=== PATIENT | female | born 1960 | race Caucasian/White ===

== ENCOUNTER 2017-11-24 17:49 | Emergency (ER) | payer MEDICARE, MEDICAID ==
[~2017-11-24] VITALS: Ht 170.2 cm; Wt 102.0 kg
[~2017-11-24 17:49] MED LIST: ADLT ASA LOW81 MG OR; ADVAIR DISK1 IN; ADVAIR DISKUS IN; ALBUTEROL0.5 % IN; ALBUTEROL90 MCG IN; ATIVAN1 MG PO; AZITHROMYCIN500 MG OR; BENTYL20 MG OR; BUSPAR10 M1 OR; BUSPAR5 MG PO; BUSPIRONE15 MG PO; CARAFATE1 GM PO; CARDIZEM CD240 MG OR; CARISOPRODOL350 MG PO; CELEBREX200 MG PO; CIPRO500 MG PO; COMBIVENT RESPIMAT IN; DOXYCYCL HYC100 MG PO; DUONEB IN; ECOTRIN LOW STR81 MG PO; EFFEXOR XR150 MG PO; EFFEXOR25 MG OR; EPIPEN0.3 MG IM; FIORICET PO; FLAGYL500 MG OR; FLONASE SPRAY50 MC1; GABAPENTIN300 MG PO; INDOCIN25 MG PO; INDOCIN50 MG/CAP PO; KEFLEX500 MG PO; KEPPRA750 M2 PO; KLOR-CON 1010 ME1 PO; LASIX 20 MG TAB20 MG PO; LEVOTHYROXIN125 MCG PO; LEVOTHYROXIN150 MCG PO; LEVOTHYROXIN75 MCG PO; LEXAPRO20 MG OR; LORTAB 10 PO; LOSARTAN POTASS50 MG PO; MEDDOSEPAK PO; METFORMIN500 M1 PO; METRONIDAZOL500 MG PO; MIRAPEX0.5 MG OR; MIRAPEX1.5 MG OR; NAPROSYN500 MG OR; NEURONTIN600 MG OR; OXYCODONE HCL15 MG PO; PERCOCET1 TA1 OR; PEXEVA30 MG OR; POT CHLORIDE20 ME3 PO; PRILOSEC20 MG/CAP PO; PRILOSEC40 MG; PROAIR HFA IN; ROXICODONE15 MG OR; SIMVASTATIN10 MG PO; SINGULAIR10 MG OR; SPIRIVA HANDIHALER IN; SPIRIVA IN; SYMBICORT1 AE1 IN; SYNTHROID175 MCG OR; TIZANIDINE2 MG PO; TOPAMAX100 MG OR; TOPAMAX25 MG PO; TRAZODONE50 MG PO; TYLENOL 500MG TAB PO; VENLAFAXINE H37.5 MG PO; VENLAFAXINE HCL75 M1 PO; ZANTAC150 MG OR; ZERTEC; ZOCOR10 MG OR; ZOCOR20 MG OR; ZOFRAN ODT4 MG PO
[2017-11-24 18:39] LABS: HEMATOCRIT 39.1 % (37.0-47.0); HEMOGLOBIN 12.7 g/dl (12.0-16.0); IMMATURE GRANULOCYTES 0.4 % (0.0-1.0); MEAN CELL VOLUME 86.1 fL CALC (80.0-100.0); MEAN CORPUSCULAR HGB CONC 32.5 g/L CALC (32.0-36.0); NEUT# 4.26 thou/uL (2.00-7.15); RED BLOOD COUNT 4.54 mill/uL (4.20-5.60); RED CELL DISTRI WIDTH 16.8 % (11.5-15.5)
[2017-11-24 18:52] LABS: ALBUMIN 3.9 g/dL (3.2-5.0); ALKALINE PHOSPHATASE 123 u/l (38-126); ANION GAP 18 (6-22 (CALC)); BILIRUBIN, TOTAL 0.2 mg/dL (0.0-1.4); BUN 9 mg/dL (7-17); BUN/CREATININE RATIO 11 (12-20 (CALC)); CALCIUM 9.8 mg/dL (8.4-10.2); CARBON DIOXIDE 20 mmol/l (22-30); CHLORIDE 104 mmol/l (95-108); CREATININE 0.8 mg/dL (0.5-1.0); GFR > 60 ML/MIN (>=60 (CALC)); GFR FOR AFR.AMER. > 60 ML/MIN (>=60 (CALC)); GLUCOSE 89 mg/dL (65-105); POTASSIUM 3.9 mmol/l (3.5-5.1); SGOT/AST 20 u/l (14-36); SGPT/ALT 28 u/l (9-52); SODIUM 138 mmol/l (137-146); TOTAL PROTEIN 6.8 g/dL (6.3-8.2)
[2017-11-24 18:54] LABS: INFLUENZA A NONE DETECTED (NONE DETECT); INFLUENZA B NONE DETECTED (NONE DETECT)
[2017-11-24] MEDS ORDERED: AUGMENTIN875TAB PO (19:04)
[2017-11-24 19:10] VITALS: BP 167/88
== END 2017-11-24 19:17 | disposition home or self-care (01) ==
LOC: ED 17:49
PROVIDERS: Emergency Medicine
DX: J06.9 Acute upper respiratory infection, unspecified (principal); J32.0 Chronic maxillary sinusitis; R50.9 Fever, unspecified; R51 Headache; R09.81 Nasal congestion; H92.09 Otalgia, unspecified ear; F17.210 Nicotine dependence, cigarettes, uncomplicated; R09.89 Other specified symptoms and signs involving the circulatory and respiratory systems

== ENCOUNTER 2018-06-25 07:30 | Day surgery (SDC) | payer MEDICARE, MEDICAID ==
[~2018-06-25] VITALS: Ht 170.2 cm; Wt 90.7 kg
[~2018-06-25 07:30] MED LIST changes: +ALBUTEROL SUL0.083 % IN; +AMLODIPINE5 MG PO; +AUGMENTIN875TAB PO; +FLONASE AL50 MCG/ACT; +FLUOXETINE40 MG PO; +MONTELUKAST SOD10 MG PO; +TYLENOL325 M2 PO
[2018-06-25 09:59] VITALS: BP 117/75
== END 2018-06-25 10:15 | disposition home or self-care (01) ==
LOC: ENDO 07:30 → ORM 07-02 08:30
PROVIDERS: ATTEND Surgery
PROC: 0DBF8ZX Excision of Right Large Intestine, Via Natural or Artificial Opening Endoscopic, Diagnostic (ICD-10-PCS; principal; 2018-06-25)
PROC: 0DJ08ZZ Inspection of Upper Intestinal Tract, Via Natural or Artificial Opening Endoscopic (ICD-10-PCS; 2018-06-25)
DX: K64.8 Other hemorrhoids (principal); K64.4 Residual hemorrhoidal skin tags; D12.2 Benign neoplasm of ascending colon; R10.11 Right upper quadrant pain; K21.9 Gastro-esophageal reflux disease without esophagitis; J44.9 Chronic obstructive pulmonary disease, unspecified; E78.5 Hyperlipidemia, unspecified; E07.9 Disorder of thyroid, unspecified; G40.909 Epilepsy, unspecified, not intractable, without status epilepticus; F32.9 Major depressive disorder, single episode, unspecified; F41.9 Anxiety disorder, unspecified; F17.210 Nicotine dependence, cigarettes, uncomplicated

== ENCOUNTER → 2018-12-30 | Outpatient (REF) | payer MEDICARE, MEDICAID ==
[2018-12-30 07:41] LABS: HEMATOCRIT 37.2 % (37.0-47.0); HEMOGLOBIN 11.4 g/dl (12.0-16.0); IMMATURE GRANULOCYTES 0.3 % (0.0-5.0); MEAN CELL VOLUME 82.1 fL CALC (80.0-100.0); MEAN CORPUSCULAR HGB 25.2 pG CALC (26.0-32.0); MEAN CORPUSCULAR HGB CONC 30.6 g/L CALC (32.0-36.0); NEUT# 2.98 thou/uL (2.00-7.15); RED BLOOD COUNT 4.53 mill/uL (4.20-5.60); RED CELL DISTRI WIDTH 17.8 % (11.5-15.5)
[2018-12-30 08:01] LABS: ALBUMIN 3.8 g/dL (3.2-5.0); ALKALINE PHOSPHATASE 113 u/l (38-126); ANION GAP 14 (6-22 (CALC)); BILIRUBIN, TOTAL 0.3 mg/dL (0.0-1.4); BUN 12 mg/dL (7-17); BUN/CREATININE RATIO 13 (12-20 (CALC)); CARBON DIOXIDE 27 mmol/l (22-30); CHLORIDE 105 mmol/l (95-108); CREATININE 0.9 mg/dL (0.5-1.0); GFR > 60 ML/MIN (>=60 (CALC)); GFR FOR AFR.AMER. > 60 ML/MIN (>=60 (CALC)); POTASSIUM 4.9 mmol/l (3.5-5.1); SGOT/AST 18 u/l (14-36); SODIUM 141 mmol/l (137-146); TOTAL PROTEIN 6.8 g/dL (6.3-8.2)
[2018-12-30 08:30] LABS: TSH, 3RD GENERATION 1.43 uIU/mL (0.47 - 4.68)
== END | disposition home or self-care (01) ==
LOC: LAB 06:50
PROVIDERS: ATTEND Internal Medicine
DX: E11.69 Type 2 diabetes mellitus with other specified complication (principal)

== ENCOUNTER → 2019-01-05 | Outpatient (REF) | payer MEDICARE, MEDICAID ==
[2019-01-05 12:09] LABS: URINE BILIRUBIN - DIPSTICK NEGATIVE (NEGATIVE); URINE BLOOD DIPSTICK NEGATIVE (NEGATIVE); URINE COLOR YELLOW; URINE GLUCOSE - DIPSTICK NEGATIVE (NEGATIVE); URINE KETONE NEGATIVE (NEGATIVE); URINE LEUK ESTERASE NEGATIVE (Negative); URINE NITRITE - DIPSTICK NEGATIVE (Negative); URINE PROTEIN - DIPSTICK NEGATIVE (NEG-TRACE); URINE SPECIFIC GRAVITY 1.025; URINE UROBILINOGEN - DIPSTICK 0.2 E.U./dL (0.2)
[2019-01-05 12:18] LABS: URINE CLARITY CLEAR
== END | disposition home or self-care (01) ==
LOC: LABSPEC 11:29
PROVIDERS: ATTEND Internal Medicine
DX: R31.9 Hematuria, unspecified (principal)

== ENCOUNTER 2019-06-25 08:29 | Day surgery (SDC) | payer MEDICARE, MEDICAID ==
[~2019-06-25 08:29] MED LIST changes: +ABILIFY5 MG PO; +CALCIUM PO; +LEVOTHYROXINE150 MCG PO; +MECLIZINE25 MG PO; +MULT VITAMIN PO; +TYLENOL500 MG PO; +VITAMIN C250 MG PO; +WELLBUTRIN SR150 MG PO; +[UNRECOGNIZED DRUG - OTHER] PO
[2019-06-25 09:20] LABS: IMMATURE GRANULOCYTES 0.3 % (0.0-5.0); MEAN CORPUSCULAR HGB 26.5 pG CALC (26.0-32.0); MEAN CORPUSCULAR HGB CONC 31.8 g/L CALC (32.0-36.0); NEUT# 3.08 thou/uL (2.00-7.15); RED BLOOD COUNT 5.13 mill/uL (4.20-5.60); RED CELL DISTRI WIDTH 27.1 % (11.5-15.5)
[2019-06-25 09:22] LABS: HEMATOCRIT 42.8 % (37.0-47.0); HEMOGLOBIN 13.6 g/dl (12.0-16.0); MEAN CELL VOLUME 83.4 fL CALC (80.0-100.0)
[2019-06-25 09:33] LABS: ALBUMIN 4.1 g/dL (3.2-5.0); ALKALINE PHOSPHATASE 133 u/l (38-126); ANION GAP 13 (6-22 (CALC)); BUN 11 mg/dL (7-17); BUN/CREATININE RATIO 14 (12-20 (CALC)); CARBON DIOXIDE 23 mmol/l (22-30); CHLORIDE 109 mmol/l (95-108); CREATININE 0.8 mg/dL (0.5-1.0); GFR > 60 ML/MIN (>=60 (CALC)); GFR FOR AFR.AMER. > 60 ML/MIN (>=60 (CALC)); SGOT/AST 20 u/l (14-36); SODIUM 141 mmol/l (137-146); TOTAL PROTEIN 7.1 g/dL (6.3-8.2)
[2019-06-25 09:40] LABS: BILIRUBIN, TOTAL 0.5 mg/dL (0.0-1.4)
[2019-06-25 12:06] VITALS: BP 116/76
== END 2019-06-25 12:45 | disposition home or self-care (01) ==
LOC: ENDO 08:29 → ORM 09:00 → ENDO 09:05
PROVIDERS: ATTEND Surgery
PROC: 06BY3ZC Excision of Hemorrhoidal Plexus, Percutaneous Approach (ICD-10-PCS; principal; 2019-06-25)
PROC: 0DB58ZX Excision of Esophagus, Via Natural or Artificial Opening Endoscopic, Diagnostic (ICD-10-PCS; 2019-06-25)
PROC: 0DB68ZX Excision of Stomach, Via Natural or Artificial Opening Endoscopic, Diagnostic (ICD-10-PCS; 2019-06-25)
PROC: 0DBL8ZX Excision of Transverse Colon, Via Natural or Artificial Opening Endoscopic, Diagnostic (ICD-10-PCS; 2019-06-25)
DX: D64.9 Anemia, unspecified (principal); D12.3 Benign neoplasm of transverse colon; K64.8 Other hemorrhoids; K29.70 Gastritis, unspecified, without bleeding; K21.0 Gastro-esophageal reflux disease with esophagitis; K31.7 Polyp of stomach and duodenum; I10 Essential (primary) hypertension; J44.9 Chronic obstructive pulmonary disease, unspecified; F17.210 Nicotine dependence, cigarettes, uncomplicated; Z86.010 Personal history of colon polyps
CPT/HCPCS: C9290

== ENCOUNTER 2022-06-03 20:04 | Emergency (ER) | payer MEDICARE, MEDICAID ==
[2022-06-03] VITALS (9 sets, daily range): BP systolic 127–147; BP diastolic 73–102
[~2022-06-03] VITALS: Ht 170.2 cm; Wt 129.5 kg
[2022-06-03 20:50] LABS: HEMATOCRIT 44.9 % (37.0-47.0); HEMOGLOBIN 14.1 g/dl (12.0-16.0); IMMATURE GRANULOCYTES 0.4 % (0.0-5.0); MEAN CELL VOLUME 91.3 fL CALC (80.0-100.0); MEAN CORPUSCULAR HGB 28.7 pG CALC (26.0-32.0); MEAN CORPUSCULAR HGB CONC 31.4 g/dL CAL (32.0-36.0); NEUT# 7.7 thou/uL (2.00-7.15); RED BLOOD COUNT 4.92 mill/uL (4.20-5.60); RED CELL DISTRI WIDTH 16.9 % (11.5-15.5)
[2022-06-03 20:58] LABS: ALBUMIN 3.7 g/dL (3.2-5.0); ALKALINE PHOSPHATASE 80 u/l (38-126); ANION GAP 9 (6-22 (CALC)); BILIRUBIN, TOTAL 0.2 mg/dL (0.0-1.4); BUN 17 mg/dL (7-17); BUN/CREATININE RATIO 20 (12-20 (CALC)); CARBON DIOXIDE 28 mmol/l (22-30); CHLORIDE 105 mmol/l (95-108); CREATININE 0.8 mg/dL (0.5-1.0); GFR FOR AFR.AMER. > 60 ML/MIN (>=60 (CALC)); GFR OTHER RACES > 60 ML/MIN (>=60 (CALC)); SGOT/AST 32 u/l (14-36); SODIUM 138 mmol/l (137-146); TOTAL PROTEIN 6.6 g/dL (6.3-8.2)
[2022-06-03 21:00] LABS: D-DIMER 0.42 mg/L (0.19-0.60)
[2022-06-03 21:10] LABS: MYOGLOBIN 37 ng/mL (0 - 62)
[2022-06-03 21:11] LABS: ACT PARTIAL THROMBO TIME 20.3 SECONDS (20.0-32.5); INTERNATIONAL NORMALIZED RATIO 0.8 RATIO (0.7-1.3); PROTHROMBIN TIME 8.9 SECONDS (9.0-12.5)
[2022-06-03] MEDS ORDERED: BUDESONID2 IN (21:15)
[2022-06-03] MEDS ORDERED: FORMOTEROL FUM NEB (21:16)
[2022-06-03 22:26] LABS: URINE BILIRUBIN - DIPSTICK NEGATIVE (NEGATIVE); URINE BLOOD DIPSTICK NEGATIVE (NEGATIVE); URINE COLOR YELLOW; URINE GLUCOSE - DIPSTICK NEGATIVE (NEGATIVE); URINE KETONE NEGATIVE (NEGATIVE); URINE LEUK ESTERASE NEGATIVE (NEGATIVE); URINE PH 5.5 (4.5-8.0); URINE PROTEIN - DIPSTICK NEGATIVE (NEG-TRACE); URINE SPECIFIC GRAVITY 1.025; URINE UROBILINOGEN - DIPSTICK 0.2 E.U./dL (0.2)
[2022-06-03 22:28] LABS: URINE NITRITE - DIPSTICK NEGATIVE (Negative)
[2022-06-04] MEDS ORDERED: EC-NAPROXEN500 MG PO (17:12)
[2022-06-04] MEDS ORDERED: CYCLOBENZAPRINE10 MG PO (17:12)
== END 2022-06-03 22:55 | disposition home or self-care (01) ==
LOC: ED 20:04
PROVIDERS: Family Medicine
DX: R07.9 Chest pain, unspecified (principal); M54.6 Pain in thoracic spine; G89.29 Other chronic pain; I10 Essential (primary) hypertension; J44.9 Chronic obstructive pulmonary disease, unspecified; F17.200 Nicotine dependence, unspecified, uncomplicated; Z20.822 Contact with and (suspected) exposure to COVID-19
CPT/HCPCS: Q9967

== ENCOUNTER 2022-06-04 15:31 | Emergency (ER) | payer MEDICARE, MEDICAID ==
[2022-06-04] VITALS (9 sets, daily range): BP systolic 117–151; BP diastolic 73–104
[~2022-06-04] VITALS: Ht 170.2 cm; Wt 129.0 kg
[~2022-06-04 15:31] MED LIST changes: +BUDESONID2 IN; +FORMOTEROL FUM NEB
[2022-06-04] MEDS ORDERED: CYCLOBENZAPRINE10 MG PO (17:12)
[2022-06-04] MEDS ORDERED: EC-NAPROXEN500 MG PO (17:12)
== END 2022-06-04 17:39 | disposition home or self-care (01) ==
LOC: ED 15:31
DX: R09.1 Pleurisy (principal); J44.9 Chronic obstructive pulmonary disease, unspecified; G89.4 Chronic pain syndrome; I10 Essential (primary) hypertension; F17.200 Nicotine dependence, unspecified, uncomplicated

== ENCOUNTER 2023-11-22 03:40 | Emergency (ER) | payer MEDICARE, MEDICAID ==
[~2023-11-22] VITALS: Ht 170.2 cm; Wt 125.0 kg
[~2023-11-22 03:40] MED LIST changes: +CYCLOBENZAPRINE10 MG PO; +EC-NAPROXEN500 MG PO
[2023-11-22 03:48] VITALS: BP 123/90
[2023-11-22 04:24] LABS: BASO% 0.3 % (0-3); EOS% 0.3 % (0-8); HEMATOCRIT 41.4 % (37.0-47.0); HEMOGLOBIN 12.3 g/dl (12.0-16.0); IMMATURE GRANULOCYTES 0.5 % (0.0-5.0); LYMPH% 8.3 % (15-41); MEAN CELL VOLUME 78.6 fL CALC (80.0-100.0); MEAN CORPUSCULAR HGB 23.3 pG CALC (26.0-32.0); MEAN CORPUSCULAR HGB CONC 29.7 g/dL CAL (32.0-36.0); MONO% 8.9 % (2-13); NEUT# 9.66 thou/uL (2.00-7.15); NEUT% 81.7 % (42-76); RED BLOOD COUNT 5.27 mill/uL (4.20-5.60); RED CELL DISTRI WIDTH 18.9 % (11.5-15.5)
[2023-11-22 04:35] LABS: ALBUMIN 4.3 g/dL (3.2-5.0); ALKALINE PHOSPHATASE 81 u/l (38-126); ANION GAP 17 (6-22 (CALC)); BILIRUBIN, TOTAL 0.7 mg/dL (0.02-1.3); BUN 11 mg/dL (7-17); BUN/CREATININE RATIO 16 (12-20 (CALC)); CARBON DIOXIDE 25 mmol/l (22-30); CHLORIDE 103 mmol/l (95-108); CREATININE 0.7 mg/dL (0.5-1.0); GFR FOR AFR.AMER. > 60 ML/MIN (>=60 (CALC)); GFR OTHER RACES > 60 ML/MIN (>=60 (CALC)); POTASSIUM 3.9 mmol/l (3.5-5.1); SGOT/AST 106 u/l (14-36); SODIUM 141 mmol/l (137-146); TOTAL PROTEIN 7.5 g/dL (6.3-8.2)
[2023-11-22] MEDS ORDERED: VIBRAMYCIN100 M2 PO (06:17)
[2023-11-22] MEDS ORDERED: PREDNISONE50 MG PO (06:17)
[2023-11-22] MEDS ORDERED: COMPAZINE10 MG PO (06:17)
[2023-11-22 06:25] VITALS: BP 123/90
== END 2023-11-22 06:35 | disposition home or self-care (01) ==
LOC: ED 03:40
PROVIDERS: Family Medicine
DX: J44.1 Chronic obstructive pulmonary disease with (acute) exacerbation (principal); J20.9 Acute bronchitis, unspecified; J44.0 Chronic obstructive pulmonary disease with (acute) lower respiratory infection; K52.9 Noninfective gastroenteritis and colitis, unspecified; I10 Essential (primary) hypertension; F17.200 Nicotine dependence, unspecified, uncomplicated; Z20.822 Contact with and (suspected) exposure to COVID-19

== ENCOUNTER 2024-10-09 10:30 | Emergency (ER) | payer MEDICARE, MEDICAID ==
[~2024-10-09] VITALS: Ht 170.2 cm; Wt 103.0 kg
[2024-10-09] VITALS (16 sets, daily range): BP systolic 101–142; BP diastolic 55–89
[~2024-10-09 10:30] MED LIST changes: +CALCIUM500 M5 PO; +COMPAZINE10 MG PO; +DULOXETINE HCL60 MG PO; +FARXIGA10 MG PO; +HYDROXYZINE HYD25 MG PO; +IPRATROPIU0.5 MG/3 M IN; +LEVETIRACETAM750 MG PO; +MAGNESIUM400 MG PO; +METFORMIN500 M2 PO; +MOUNJARO7.5 M1; +OMEPRAZOLE DR40 MG PO; +PRAZOSIN HCL1 M1 PO; +PREDNISONE10 MG PO; +PREDNISONE50 MG PO; +PREGABALIN100 MG PO; +SPIRIVA RE2.5 MCG/AC; +TYLENOL PO; +VIBRAMYCIN100 M2 PO; +VRAYLAR1.5 MG PO
[2024-10-09] MEDS ORDERED: SODIUM CHLORIDE 0.9% 1,000 ML IV ONE (11:00)
[2024-10-09] MEDS ORDERED: ISOVUE-300 (Iopamidol) 100 ML SDV IV ONE (11:00)
[2024-10-09] MEDS ORDERED: ONDANSETRON HCl 4 MG/2 ML SDV IV ONE (11:00)
[2024-10-09 11:20] LABS: BASO% 0.8 % (0-3); EOS% 3.1 % (0-8); HEMOGLOBIN 12.6 g/dl (12.0-16.0); IMMATURE GRANULOCYTES 0.4 % (0.0-5.0); LYMPH% 32.6 % (15-41); MEAN CELL VOLUME 75.4 fL CALC (80.0-100.0); MEAN CORPUSCULAR HGB 22.1 pG CALC (26.0-32.0); MEAN CORPUSCULAR HGB CONC 29.3 g/dL CAL (32.0-36.0); NEUT# 4.4 thou/uL (2.00-7.15); NEUT% 52.1 % (42-76); RED BLOOD COUNT 5.7 mill/uL (4.20-5.60); RED CELL DISTRI WIDTH 19.5 % (11.5-15.5)
[2024-10-09 11:40] LABS: ALBUMIN 3.7 g/dL (3.2-5.0); ALKALINE PHOSPHATASE 77 u/l (38-126); ANION GAP 16 (6-22 (CALC)); BILIRUBIN, TOTAL 0.4 mg/dL (0.02-1.3); BUN 5 mg/dL (8-23); BUN/CREATININE RATIO 8 (12-20 (CALC)); CARBON DIOXIDE 24 mmol/l (22-30); CHLORIDE 104 mmol/l (95-108); CREATININE 0.7 mg/dL (0.5-1.0); ESTIMATED GFR 98 ML/MIN (>=90 (CALC)); LIPASE 53 u/l (23-300); POTASSIUM 4.2 mmol/l (3.5-5.1); SGOT/AST 34 u/l (9-36); SODIUM 141 mmol/l (137-146); TOTAL PROTEIN 6.8 g/dL (6.3-8.2)
[2024-10-09] MEDS ORDERED: Pantoprazole Sodium 40 MG VIAL (Protonix) IV ONE (13:10)
[2024-10-09] MEDS ORDERED: PEPCID AC20 M1 PO (13:17)
[2024-10-09] MEDS ORDERED: PROTONIX40 M2 PO (13:17)
[2024-10-09] MEDS ORDERED: ZOFRAN4 MG/TAB PO (13:17)
== END 2024-10-09 14:58 | disposition home or self-care (01) ==
LOC: ED 10:30
PROVIDERS: Family Medicine
DX: K52.9 Noninfective gastroenteritis and colitis, unspecified (principal); I10 Essential (primary) hypertension; E11.9 Type 2 diabetes mellitus without complications; E66.9 Obesity, unspecified; J44.9 Chronic obstructive pulmonary disease, unspecified; F17.200 Nicotine dependence, unspecified, uncomplicated; Z79.84 Long term (current) use of oral hypoglycemic drugs
CPT/HCPCS: J2470; Q9967

== ENCOUNTER 2024-10-22 08:33 | Day surgery (SDC) | payer MEDICARE, MEDICAID ==
[~2024-10-22] VITALS: Ht 170.2 cm; Wt 101.6 kg
[~2024-10-22 08:33] MED LIST changes: +LEVOCETIRIZINE D5 MG PO; +PEPCID AC20 M1 PO; +PROTONIX40 M2 PO; +ZOFRAN4 MG/TAB PO
[2024-10-22] MEDS ORDERED: SODIUM CHLORIDE 0.9% 1,000 ML IV ONE (08:42)
[2024-10-22] MEDS ORDERED: FAMOTIDINE 10MG/ML 2ML SDV IV ONE (08:42)
[2024-10-22 11:06] VITALS: BP 133/81
[2024-10-22] MEDS ORDERED: LIDOCAINE HCL 2% 2ML SDV IV ONE (15:45)
[2024-10-22] MEDS ORDERED: GLYCOPYRROLATE 0.2 MG/ML IV ONE (15:45)
[2024-10-22] MEDS ORDERED: PROPOFOL 200 MG/20 ML VIAL IV ONE (15:45)
== END 2024-10-22 11:27 | disposition home or self-care (01) ==
LOC: ORM 08:33
PROVIDERS: ATTEND Surgery
PROC: 0DBL8ZX Excision of Transverse Colon, Via Natural or Artificial Opening Endoscopic, Diagnostic (ICD-10-PCS; principal; 2024-10-22)
PROC: 0DB48ZX Excision of Esophagogastric Junction, Via Natural or Artificial Opening Endoscopic, Diagnostic (ICD-10-PCS; 2024-10-22)
PROC: 0DB78ZX Excision of Stomach, Pylorus, Via Natural or Artificial Opening Endoscopic, Diagnostic (ICD-10-PCS; 2024-10-22)
DX: K21.00 Gastro-esophageal reflux disease with esophagitis, without bleeding (principal); K31.89 Other diseases of stomach and duodenum; K44.9 Diaphragmatic hernia without obstruction or gangrene; K29.70 Gastritis, unspecified, without bleeding; Z12.11 Encounter for screening for malignant neoplasm of colon; D12.3 Benign neoplasm of transverse colon; K57.30 Diverticulosis of large intestine without perforation or abscess without bleeding; K64.8 Other hemorrhoids; J45.909 Unspecified asthma, uncomplicated; J44.9 Chronic obstructive pulmonary disease, unspecified; I10 Essential (primary) hypertension; E11.9 Type 2 diabetes mellitus without complications; F31.9 Bipolar disorder, unspecified; E78.5 Hyperlipidemia, unspecified; Z79.84 Long term (current) use of oral hypoglycemic drugs; Z86.0100 Personal history of colon polyps, unspecified
CPT/HCPCS: J1596